=== PATIENT | female | born 1970 | race Caucasian/White ===

== ENCOUNTER 2019-07-21 12:26 | Emergency (ER) | payer OTHER ==
[~2019-07-21] VITALS: Ht 172.7 cm; Wt 102.1 kg
[2019-07-21] MEDS ORDERED: BUTALB-APAP-CA1 EACH PO (14:50)
[2019-07-21] MEDS ORDERED: PHENERGAN 25 MG25 M1 PO (14:50)
[2019-07-21] MEDS ORDERED: NORFLEX100 MG PO (14:50)
[2019-07-21 15:57] VITALS: BP 167/92
== END 2019-07-21 15:59 | disposition home or self-care (01) ==
LOC: ER 12:26
DX: G43.909 Migraine, unspecified, not intractable, without status migrainosus (principal); Z88.6 Allergy status to analgesic agent

== ENCOUNTER → 2021-04-23 | Outpatient (CLI) | payer OTHER ==
[~2021-04-23] VITALS: Ht 172.7 cm; Wt 101.2 kg
[~2021-04-23] MED LIST: BUTALB-APAP-CA1 EACH PO; COLAZAL750 M1 PO; LOSARTAN-HCTZ1 EAC3 PO; MEDROLDOSEPACK PO; NORFLEX100 MG PO; NORVASC 2.5 MG2.5 M1 PO; PHENDIMETRAZINE35 MG PO; PHENERGAN 25 MG25 M1 PO; PROTONIX40 M2 PO; SERTRALINE HCL100 MG PO; TOPAMAX100 MG PO; VIBERZI75 MG PO; VYVANSE70 MG PO
[2021-04-23 12:59] VITALS: BP 116/74
--- NOTE | 2021-04-23 13:32 | NUR ---
Pain Clinic Assessment: 1. History of Osteoarthritis: Left Lower Extremity Right Lower Extremity History of Rheumatoid Arthritis: Not Applicable 2. Height: 5 ft. 8 in. 172.7 cm. Weight: 223.0 lb. oz. 101.152 kg. Patient's BMI: 33.9 3. Vital Signs: BP: 116/74 Pulse: 65 Resp: 20 Temp: 02 Sat: 100 ECG Mon: 4. Pain Intensity: 6 5. Fall Risk: Dizziness: N Needs help standing or walking: N Fallen in the last 3 months: N Fall risk comments: 6. Patient on Blood Thinner: None 7. History of Hypertension: Y 8. Opioid Therapy greater than 6 weeks: N Opiate Contract Signed: 9. Risk Assessment Tool Provided: LOW 10. Functional Assessment Tool: 11. Recreational Drug Use: Never Drug Type: Tobacco Use: Never Smoker Tobacco Type: Amount or Packs/day: How Many Years: Alcohol Use: Yes Frequency: Weekly Quant: 2
== END ==
LOC: PAIN 07:31
PROVIDERS: ATTEND Anesthesiology Pain Medicine
DX: M48.02 Spinal stenosis, cervical region (principal); M54.12 Radiculopathy, cervical region; I10 Essential (primary) hypertension; E66.9 Obesity, unspecified; Z96.642 Presence of left artificial hip joint; Z79.899 Other long term (current) drug therapy; Z88.8 Allergy status to other drugs, medicaments and biological substances

== ENCOUNTER → 2021-05-05 | Outpatient (CLI) | payer OTHER ==
[~2021-05-05] VITALS: Ht 172.7 cm; Wt 103.7 kg
[2021-05-05 08:34] VITALS: BP 119/73
--- NOTE | 2021-05-05 08:39 | NUR ---
Pain Clinic Assessment: 1. History of Osteoarthritis: Left Lower Extremity Right Lower Extremity History of Rheumatoid Arthritis: Not Applicable 2. Height: 5 ft. 8 in. 172.7 cm. Weight: 228.6 lb. oz. 103.692 kg. Patient's BMI: 34.8 3. Vital Signs: BP: 119/73 Pulse: 70 Resp: 16 Temp: 02 Sat: 98 ECG Mon: 4. Pain Intensity: 4-8 5. Fall Risk: Dizziness: N Needs help standing or walking: N Fallen in the last 3 months: N Fall risk comments: 6. Patient on Blood Thinner: None 7. History of Hypertension: Y 8. Opioid Therapy greater than 6 weeks: N Opiate Contract Signed: 9. Risk Assessment Tool Provided: LOW 10. Functional Assessment Tool: 11. Recreational Drug Use: Never Drug Type: Tobacco Use: Never Smoker Tobacco Type: Amount or Packs/day: How Many Years: Alcohol Use: Yes Frequency: Quant:
== END | disposition home or self-care (01) ==
LOC: PAIN 06:45
PROVIDERS: ATTEND Anesthesiology Pain Medicine
DX: M54.12 Radiculopathy, cervical region (principal); M48.02 Spinal stenosis, cervical region; I10 Essential (primary) hypertension; M19.90 Unspecified osteoarthritis, unspecified site; E66.9 Obesity, unspecified; Z98.890 Other specified postprocedural states; Z79.899 Other long term (current) drug therapy; J45.909 Unspecified asthma, uncomplicated; Z96.642 Presence of left artificial hip joint